=== PATIENT | female | born 1940 | race Caucasian/White ===

== ENCOUNTER 2019-07-21 18:00 | Emergency (ER) | payer MEDICARE, OTHER ==
[~2019-07-21] VITALS: Ht 175.3 cm; Wt 78.5 kg
[2019-07-21] MEDS ORDERED: methylPREDNISolone SOD SUCC PF 125 MG/2 ML VIAL. IV ONE (18:30)
[2019-07-21] MEDS ORDERED: IV NORMAL SALINE 1,000ML 1,000 ML IV ONE (18:30)
[2019-07-21 18:41] LABS: BASO # 0.1 x10^3/uL (0.0-0.2); BASO % 1 % (0-3); EOS # 0.1 x10^3/uL (0.0-0.7); EOS % 1 % (0-3); HEMATOCRIT 40.5 % (36.0-47.0); HEMOGLOBIN 14.2 g/dL (12.0-15.5); LYMPH # 1.1 x10^3/uL (1.0-4.8); LYMPH % 24 % (24-48); MEAN CORPUSCULAR HEMOGLOBIN 36 pg (25-35); MEAN CORPUSCULAR HGB CONC 35 g/dL (31-37); MEAN CORPUSCULAR VOLUME 102 fL (79-100); MONO # 0.6 x10^3/uL (0.0-1.1); MONO % 12 % (0-9); NEUT % 62 % (31-73); PLATELET COUNT 294 x10^3/uL (140-400); RED BLOOD COUNT 3.99 x10^6/uL (3.50-5.40); RED CELL DISTRIBUTION WIDTH 12.8 % (11.5-14.5); WHITE BLOOD COUNT 4.8 x10^3/uL (4.0-11.0)
[2019-07-21 18:51] LABS: ALBUMIN 4.1 g/dL (3.4-5.0); ALBUMIN/GLOBULIN RATIO 1.1 (1.0-1.7); CALCIUM 9.3 mg/dL (8.5-10.1); CREATININE 0.9 mg/dL (0.6-1.0); GFR 60.7; POTASSIUM 3.8 mmol/L (3.5-5.1); TOTAL BILIRUBIN 0.7 mg/dL (0.2-1.0); TOTAL PROTEIN 7.7 g/dL (6.4-8.2)
--- NOTE | 2019-07-21 18:54 | PHYS DOC ---
Past History Past Medical History: High Cholesterol, Hypertension Past Surgical History: Knee Replacement Alcohol Use: None Drug Use: None Adult General Chief Complaint Chief Complaint: FACE PROBLEM HPI HPI 78-year-old female presents with lip and facial swelling. The patient started noticing swelling today on the left side of her face around 10:30 AM. She has taken 3 doses of 25 mg Benadryl without relief. It is not pruritic. The patient has not been bit, stone, or ingested any unusual or new substances. She is on lisinopril. She has been on this for many years. She is having no difficulty breathing. Her tongue does not feel swollen. She denies fever or chills. Review of Systems Review of Systems Constitutional: Denies fever or chills [] Eyes: Denies change in visual acuity, redness, or eye pain [] HENT: Facial swelling[] Respiratory: Denies cough or shortness of breath [] Cardiovascular: No additional information not addressed in HPI [] GI: Denies abdominal pain, nausea, vomiting, bloody stools or diarrhea [] : Denies dysuria or hematuria [] Musculoskeletal: Denies back pain or joint pain [] Integument: Denies rash or skin lesions [] Neurologic: Denies headache, focal weakness or sensory changes [] Endocrine: Denies polyuria or polydipsia [] All other systems were reviewed and found to be within normal limits, except as documented in this note. Current Medications Current Medications Current Medications Medications (Trade) Dose Ordered Sig/Lorenza Start Time Stop Time Status Last Admin Dose Admin Methylprednisolone Sodium Succinate (SOLU-Medrol 125MG VIAL) 125 mg 1X ONCE 07/21/19 18:30 07/21/19 18:31 DC 07/21/19 18:27 125 MG Sodium Chloride 1,000 ml @ 1,000 mls/hr 1X ONCE 07/21/19 18:30 07/21/19 19:29 07/21/19 18:27 1,000 MLS/HR Allergies Allergies Allergies Coded Allergies Type Severity Reaction Last Updated Verified No Known Drug Allergies 07/21/19 No Physical Exam Physical Exam Constitutional: Well developed, well nourished, no acute distress, non-toxic appearance. [] HENT: Swelling of the left face and upper lip, tongue normal, airway patent.[] Eyes: PERRLA, EOMI, conjunctiva normal, no discharge. [] Neck: Normal range of motion, no tenderness, supple, no stridor. [] Cardiovascular:Heart rate regular rhythm, no murmur [] Lungs & Thorax: Bilateral breath sounds clear to auscultation [] Abdomen: Bowel sounds normal, soft, no tenderness, no masses, no pulsatile masses. [] Skin: Warm, dry, no erythema, no rash. [] Back: No tenderness, no CVA tenderness. [] Extremities: No tenderness, no cyanosis, no clubbing, ROM intact, no edema. [] Neurologic: Alert and oriented X 3, normal motor function, normal sensory function, no focal deficits noted. [] Psychologic: Affect normal, judgement normal, mood normal. [] Current Patient Data Vital Signs Vital Signs Date Time Temp Pulse Resp B/P (MAP) Pulse Ox O2 Delivery O2 Flow Rate FiO2 07/21/19 18:32 98.0 92 22 98 Room Air Lab Results Laboratory Tests Test 07/21/19 18:24 White Blood Count 4.8 x10^3/uL (4.0-11.0) Red Blood Count 3.99 x10^6/uL (3.50-5.40) Hemoglobin 14.2 g/dL (12.0-15.5) Hematocrit 40.5 % (36.0-47.0) Mean Corpuscular Volume 102 fL (79-100) H Mean Corpuscular Hemoglobin 36 pg (25-35) H Mean Corpuscular Hemoglobin Concent 35 g/dL (31-37) Red Cell Distribution Width 12.8 % (11.5-14.5) Platelet Count 294 x10^3/uL (140-400) Neutrophils (%) (Auto) 62 % (31-73) Lymphocytes (%) (Auto) 24 % (24-48) Monocytes (%) (Auto) 12 % (0-9) H Eosinophils (%) (Auto) 1 % (0-3) Basophils (%) (Auto) 1 % (0-3) Neutrophils # (Auto) 3.0 x10^3uL (1.8-7.7) Lymphocytes # (Auto) 1.1 x10^3/uL (1.0-4.8) Monocytes # (Auto) 0.6 x10^3/uL (0.0-1.1) Eosinophils # (Auto) 0.1 x10^3/uL (0.0-0.7) Basophils # (Auto) 0.1 x10^3/uL (0.0-0.2) EKG EKG [] Radiology/Procedures Radiology/Procedures [] Course & Med Decision Making Course & Med Decision Making Pertinent Labs and Imaging studies reviewed. (See chart for details) The patient's labs are remarkable except for an elevated MCV of 102. I have given the patient 1 L normal saline, 50 mg of Benadryl IV, and 125 mg of Solu- Medrol. I believe this is angioedema due to lisinopril. I will discontinue this medication and give the patient a prescription for hydrochlorothiazide alone as well as 3 more days of prednisone. She will follow up with her primary care physician when she goes back home to [place] next week. The patient has had some improvement in the left-sided facial swelling. She still has a swollen upper lip. She has had no difficulty breathing throughout her stay in the ED. She would like to go home. She is stable for discharge at this time. [] Dragon Disclaimer Dragon Disclaimer This electronic medical record was generated, in whole or in part, using a voice recognition dictation system. Departure Departure: Impression: Primary Impression: Angioedema Disposition: HOME, SELF-CARE Condition: STABLE Referrals: PCP,UNKNOWN (PCP) Patient Instructions: Angioedema, Obbb-kh-Bahw Scripts Prednisone (PREDNISONE) 10 Mg Tablet 40 MG PO DAILY for angioedema for 3 Days, #12 TAB Prov: IGNACIO APPIAH DO 07/21/19 Hydrochlorothiazide (HYDROCHLOROTHIAZIDE TABLET ) 25 Mg Tablet 25 MG PO DAILY for hypertension for 14 Days, #14 TAB 0 Refills Prov: IGNACIO APPIAH DO 07/21/19 Problem Qualifiers Primary Impression: Angioedema Encounter type: initial encounter Qualified Codes: T78.3XXA - Angioneurotic edema, initial encounter IGNACIO APPIAH DO Jul 21, 2019 18:54
[2019-07-21] MEDS ORDERED: diphenhydrAMINE 50 MG/ML VIAL IVP ONE (19:15)
[2019-07-21 20:00] VITALS: BP 144/71
[2019-07-21] MEDS ORDERED: PRED-220 PO (20:01)
[2019-07-21] MEDS ORDERED: HYDR-2145 PO (20:01)
== END 2019-07-21 20:12 | disposition home or self-care (01) ==
LOC: ER 18:00
DX: T78.3XXA Angioneurotic edema, initial encounter (principal); E78.00 Pure hypercholesterolemia, unspecified; I10 Essential (primary) hypertension
CPT/HCPCS: 36415; 80053; 85025; 96374; 96375; 99284; J1200; J2930; J7030

== ENCOUNTER → 2020-09-09 | Outpatient (CLI) | payer MEDICARE, OTHER ==
[~2020-09-09] MED LIST: HYDR-2145 PO; PRED-220 PO
--- NOTE | 2020-09-09 15:06 | RAD ---
4 views left knee without comparison for left knee pain, concern regarding the patella. FINDINGS: There is no fracture, dislocation, or acute osseous abnormality identified. There is mild lateral subluxation of the patella. A suprapatellar joint effusion is present. There is narrowing of the patellofemoral joint compartment, and there are degenerative changes of the lateral joint compartment as well, with mild narrowing and prominent osteophyte formation. IMPRESSION: 1. No fracture or acute osseous abnormality. 2. Suprapatellar joint effusion. 3. Mild subluxation of the patella laterally. 4. Degenerative changes. Electronically signed by: Elías Deshpande MD (09/09/2020 3:03 PM) [id number]
== END ==
LOC: DXRAD 11:06
PROVIDERS: ATTEND Family Medicine
DX: S83.002A Unspecified subluxation of left patella, initial encounter (principal); M17.12 Unilateral primary osteoarthritis, left knee; M25.462 Effusion, left knee; X58.XXXA Exposure to other specified factors, initial encounter; Y93.89 Activity, other specified; Y92.89 Other specified places as the place of occurrence of the external cause; Y99.8 Other external cause status
CPT/HCPCS: 73564

== ENCOUNTER → 2021-02-19 | Outpatient (CLI) | payer MEDICARE, OTHER ==
--- NOTE | 2021-02-20 04:02 | RAD ---
INDICATION: Screening for osteopenia/osteoporosis. Postmenopausal evaluation. COMPARISON: None. TECHNIQUE: Bone densitometry was performed through the lumbar spine and proximal femur. IMPRESSION: Lumbar Spine: BMD: 1.5 T-Score: 2.7 Range: Normal Proximal Femur: BMD: 0.78 T-Score: -1.4 Range: Osteopenic World Health Organization Criteria for Bone Density: T-Score: > -1.0: Normal Range < -1.0 to -2.5: Osteopenic Range < -2.5: Osteoporotic Range Electronically signed by: Darrion Ward MD (02/20/2021 3:59 AM) [id number]
--- NOTE | 2021-03-03 11:52 | RAD ---
EXAM: Bilateral screening mammogram. HISTORY: 80-year-old female presents for screening mammography. TECHNIQUE: Full-field digital craniocaudal and mediolateral oblique views of both breasts are obtaine d for evaluation. Computer aided detection was applied. COMPARISON: There is no prior study available for comparison. This exam serves as a new baseline mamm ogram. BREAST PARENCHYMAL DENSITY: Level C - Heterogeneously dense. FINDINGS: There is no suspicious mass, microcalcification or region of architectural distortion. IMPRESSION: BI-RADS Category 2: Benign finding(s). RECOMMENDATION: Annual mammography is recommended. If your mammogram demonstrates that you have dense breast tissue, which could hide abnormalities, and if you have other risk factors for breast cancer that have been identified, you might benefit from s upplemental screening tests that may be suggested by your ordering physician. Dense breast tissue, i n and of itself, is a relatively common condition. This information is not provided to cause undue c oncern, but rather to raise your awareness and to promote discussion with your physician regarding th e presence of other risk factors, in addition to dense breast tissue. A report of your mammography re sults will be sent to you and your physician. You should contact your physician if you have any ques tions or concerns regarding this report. Mammography is a sensitive method for finding small breast cancers, but it does not detect them all a nd is not a substitute for careful clinical examination. A negative mammogram does not negate a clin ically suspicious finding and should not result in delay in biopsying a clinically suspicious abnorma lity. PQRS compliance statement - Patient information was entered into a reminder system with a target due date for the next mammogram. "Our facility is accredited by the [employer] Mammography Program." Electronically signed by: Nidhi Sinclair MD (03/03/2021 11:49 AM) [id number]
== END ==
LOC: MAMMO 10:56
PROVIDERS: ATTEND Family Medicine
DX: Z12.31 Encounter for screening mammogram for malignant neoplasm of breast (principal); Z00.00 Encounter for general adult medical examination without abnormal findings; N95.1 Menopausal and female climacteric states; N95.9 Unspecified menopausal and perimenopausal disorder
CPT/HCPCS: 77067; 77080

== ENCOUNTER 2022-03-15 15:55 | Emergency (ER) | payer MEDICARE, OTHER ==
[~2022-03-15] VITALS: Ht 175.3 cm; Wt 79.5 kg
--- NOTE | 2022-03-15 17:58 | PHYS DOC ---
Past History Past Medical History: High Cholesterol, Hypertension (LUDIVINA DELGADO APRN) Past Surgical History: Knee Replacement Additional Past Surgical Histo: RIGHT (LUDIVINA DELGADO APRN) Alcohol Use: None Drug Use: None (LUDIVINA DELGADO APRN) General Adult EDM: Chief Complaint: KNEE INJURY HPI: HPI: Patient is an 81-year-old female who presents to the emergency department for left posterior knee pain. Patient reports that 2 years ago she was experiencing some knee pain and had an x-ray performed in the doctor told her that she had arthritis. She reports that she was getting up out of her chair today when she experienced a sharp pain in the back of her knee and her knee buckled and she caught herself prior to falling. She reports that she was able to bear weight and ambulate following with the buckling of the knee occurred 6 more times throughout the day. Patient denies any pain at rest but reports pain that is 7 out of 10 when the buckling does occur. She denies any decreased range of motion or decreased sensation in her extremity. (LUDIVINA DELGADO APRN) Review of Systems: Review of Systems: Musculoskeletal: See HPI Integument: See HPI Neurologic: See HPI (LUDIVINA DELGADO APRN) Allergies: Allergies: Allergies Coded Allergies Type Severity Reaction Last Updated Verified lisinopril Allergy Intermediate 03/15/22 Yes (LUDIVINA DELGADO APRN) Physical Exam: PE: Constitutional: Well developed, well nourished, no acute distress, non-toxic appearance. [] HENT: Normocephalic, atraumatic, bilateral external ears normal, oropharynx moist, no oral exudates, nose normal. [] Eyes: PERRL, EOMI, conjunctiva normal, no discharge. [] Neck: Normal range of motion, no stridor Cardiovascular normal peripheral perfusion Lungs & Thorax: Normal work of breathing, no tachypnea Abdomen: Soft and flat Skin: Warm, dry, no erythema, no rash. [] Back: No tenderness, normal range of motion Extremities: No tenderness, no cyanosis, no clubbing, ROM intact, no edema. [] Left knee: Swelling noted to anterior aspect of left knee, pain with palpation to posterior aspect of left knee, no obvious deformity, no joint laxity, no crepitus, range of motion intact, neuro intact Neurologic: Alert and oriented X 3, normal motor function, normal sensory function, no focal deficits noted. [] Psychologic: Affect normal, judgement normal, mood normal. [] (LUDIVINA DELGADO APRN) Current Patient Data: Vital Signs: Vital Signs Date Time Temp Pulse Resp B/P (MAP) Pulse Ox O2 Delivery O2 Flow Rate FiO2 03/15/22 17:19 97.6 98 18 159/96 (117) 96 Room Air (LUDIVINA DELGADO APRN) EKG: EKG: [] (LUDIVINA DELGADO APRN) Radiology/Procedures: Radiology/Procedures: [] (LUDIVINA DELGADO APRN) Heart Score: C/O Chest Pain: N/A Risk Factors: Risk Factors: DM, Current or recent (<one month) smoker, HTN, HLP, family history of CAD, obesity. Risk Scores: Score 0 - 3: 2.5% MACE over next 6 weeks - Discharge Home Score 4 - 6: 20.3% MACE over next 6 weeks - Admit for Clinical Observation Score 7 - 10: 72.7% MACE over next 6 weeks - Early Invasive Strategies (LUDIVINA DELGADO APRN) Course & Med Decision Making: Course & Med Decision Making Pertinent Labs and Imaging studies reviewed. (See chart for details) [] Patient presents to the emergency department for left posterior knee pain she got up and her knee buckled several times. Imaging was performed of the left knee. Imaging did not show any acute fractures there are arthritic changes in her knee as read by supervising physician. Patient's knee was placed in George wrap to help with swelling. She was educated on the RICE protocol. She is advised to take anti-inflammatory medications at home. Advised to follow-up with her primary care provider for outpatient MRI if she continues to have pain. I discussed with patient all findings and diagnostic testing as well as the need to follow-up with PCP for further evaluation and treatment or return to the ER if any new or worsening symptoms. Strict return precautions were also discussed at length. Patient voiced understanding and agreement with the plan. Patient is hemodynamically stable at the time of disposition. (LUDIVINA DELGADO APRN) Course & Med Decision Making Did not see or evaluate patient. Did not discuss patient with MANAGER OF FINANCIAL. Generally agree with MANAGER OF FINANCIAL's work-up and disposition per note (GUSTAVO VEGA MD) Dragon Disclaimer: Dragon Disclaimer: This electronic medical record was generated, in whole or in part, using a voice recognition dictation system. (LUDIVINA DELGADO APRN) Departure Departure: Impression: Primary Impression: Knee pain Qualified Codes: M25.562 - Pain in left knee Disposition: HOME / SELF CARE / HOMELESS Condition: GOOD Referrals: PRINCE ALVAREZ MD (PCP) Patient Instructions: RICE - Routine Care for Injuries Additional Instructions: You are seen in the emergency department today for left knee pain. Your x-ray did show arthritic changes but no acute fracture. Your knee was placed in an George wrap to help with pain and swelling. Your symptoms may be improved by something called the rice protocol. This is rest, ice, compression, elevation. Please follow-up when doing intense exercises that may make the pain worse. Sometimes gentle stretching can provide relief, but be careful to injury. It is important to perform gentle range of motion exercises to prevent stiff joints and chronic pain. Use ice packs over the affected areas to help decrease your pain. For the first 24 hours you can apply ice 20 minutes on 20 minutes off for 4 times per day. Sometimes compression such as the use of an George wrap can help with the swelling. You may also elevate the affected area to help with the swelling. Take Tylenol and ibuprofen at home for pain. Please follow-up with your primary care provider tomorrow regarding your ER visit. If your pain gets worse or persist you may need outpatient MRI. Please be careful with ambulation please use a cane or a walker. Return to the emergency department if you develop any new injuries or falls, decreased range of motion or decreased sensation in your extremity. LUDIVINA DELGADO APRN March 15, 2022 17:58 GUSTAVO VEGA MD March 15, 2022 19:18
--- NOTE | 2022-03-15 18:48 | RAD ---
XR KNEE _3 VIEWS_LT History: Reason: knee pain, "buckled" / Spl. Instructions: / History: Technique: 3 views left knee Comparison: None. Findings: No dislocation. No acute fracture. Advanced left knee degenerative changes most prominent within the lateral compartment. No significant knee joint effusion although evaluation is degraded on lateral vi ew due to positioning. Chondrocalcinosis is noted. Impression: 1. No acute osseous abnormality. 2. Advanced left knee DJD with chondrocalcinosis. Electronically signed by: Trae Goel DO (03/15/2022 6:46 PM) RAND
[2022-03-15 19:02] VITALS: BP 145/100
== END 2022-03-15 19:02 | disposition home or self-care (01) ==
LOC: ER 15:55
DX: M25.562 Pain in left knee (principal); R22.42 Localized swelling, mass and lump, left lower limb; E78.00 Pure hypercholesterolemia, unspecified; I10 Essential (primary) hypertension; Z88.8 Allergy status to other drugs, medicaments and biological substances
CPT/HCPCS: 73562; 99283